=== PATIENT | male | born 1955 | race Caucasian/White ===

== ENCOUNTER 2016-10-23 15:02 | Emergency (ER) | payer OTHER ==
[~2016-10-23] VITALS: Ht 182.8 cm; Wt 72.6 kg
--- NOTE | ~2016-10-23 | EKG ---
[place], [place] ELECTROCARDIOGRAM REPORT NAME: SIMON BAKER UNIT #: [id number] ROOM: DOCTOR: SOLIS LE MD BIRTHDATE: [birth year] DOS: 10/23/2016 TIME: 1614 hours. Normal sinus rhythm at 82 beats per minute. Marked left axis deviation. Incomplete left bundle branch block. An abnormal ECG. No previous tracing is available for comparison. SOLIS LE MD CM:EKGRPT:ELECTROCARDIOGRAM REPORT [id number] 41 SOLIS LE MD
[~2016-10-23 15:02] MED LIST: BENTYL20 MG PO; DONNATAL1 TAB PO; GEODON40 MG PO; MEDROL DOSEPAK4 MG PO; MOTRIN800 MG PO; PEPCID20 MG PO; SIMVASTATIN40 MG PO; SOMA350 MG PO; TRAMADOL HCL50 MG PO; TRAMADOL50 MG PO; ULTRAM50 MG PO; VICODIN 5/500 505 MG; VICODIN 5/500 505 MG PO; VITAMIN D5000 I2 PO; ZOFRAN ODT8 MG PO
[2016-10-23 15:21] VITALS: BP 152/86
[2016-10-23 16:18] LABS: BASO % 0.2 % (0.0-1.0); HEMATOCRIT 43.4 % (42.0-52.0); HEMOGLOBIN 14.1 g/dl (14.0-18.0); LYMPH # 0.8 10*3/uL (1.3-4.4); LYMPH % 11.7 % (27.0-41.0); MEAN CELL VOLUME 96.4 fl (80.0-94.0); MEAN CORPUSCULAR HGB 31.3 pg (27.0-31.0); MEAN CORPUSCULAR HGB CONC 32.5 g/dl (33.0-37.0); MEAN PLATELET VOLUME 10.5 fl (9.6-12.3); MONO # 0.3 10*3/uL (0.1-1.0); MONO % 4.7 % (3.0-9.0); NEUT # 5.5 10*3/uL (2.3-7.9); NEUT % 82.9 % (47.0-73.0); PLATELET COUNT AUTOMATED 267 10*3/uL (130-400); RED CELL DISTRI WIDTH 12.7 % (0-14.5); WHITE BLOOD COUNT 6.6 10*3/uL (4.8-10.8)
[2016-10-23 16:35] LABS: ALBUMIN 3.9 gm/dl (3.1-4.5); ALKALINE PHOSPHATASE 89 U/L (45-117); BILIRUBIN, TOTAL 0.4 mg/dl (0.2-1.0); BUN 8 mg/dl (7-24); CARBON DIOXIDE 25 mmol/L (21-32); CHLORIDE 109 mmol/L (98-107); CKMB 0.9 ng/ml (0.5-3.6); EST GLOM FILT AFRICAN AMERICAN > 60 ml/min; GLUCOSE 98 mg/dL (65-99); MAGNESIUM 2.4 mg/dL (1.5-2.1); POTASSIUM 4.3 mmol/L (3.5-5.1); SGOT/AST 19 IU/L (3-35); SGPT/ALT 27 U/L (12-78); SODIUM 143 mmol/L (136-145); TOTAL PROTEIN 8.2 gm/dL (6.4-8.2)
[2016-10-23 17:20] LABS: PROTHROMBIN TIME 10.4 SECONDS (9.0-12.4)
[2016-10-23 18:22] LABS: BILIRUBIN NEGATIVE (NEGATIVE); BLOOD NEGATIVE (NEGATIVE); CLARITY SL CLOUDY (CLEAR); COLOR YELLOW (YELLOW); GLUCOSE NEGATIVE (NEGATIVE); KETONE NEGATIVE (NEGATIVE); LEUKO ESTERASE NEGATIVE (NEGATIVE); NITRITE NEGATIVE (NEGATIVE); PH 6.5 (5.0-9.0); PROTEIN 1+ (NEGATIVE); UROBILINOGEN 0.2 E.U./dl (0.2-1.0)
[2016-10-23 18:52] LABS: BACTERIA 1+; EPITHELIAL CELLS 0-2; MUCOUS 1+; RBC 0-2 rbc/hpf (0-2); URINE REFLEX COMMENT NO (NO)
== END 2016-10-23 18:20 | disposition left against medical advice (07) ==
LOC: ED 15:02
PROVIDERS: Nurse Practitioner Family
DX: K56.7 Ileus, unspecified (principal); Z90.49 Acquired absence of other specified parts of digestive tract; Z90.3 Acquired absence of stomach [part of]; Z79.899 Other long term (current) drug therapy

== ENCOUNTER 2017-07-02 20:32 | Emergency (ER) | payer OTHER ==
[~2017-07-02] VITALS: Ht 182.8 cm; Wt 77.1 kg
[2017-07-02] MEDS ORDERED: VENTOLIN,PR2 MG/5 ML PO (20:43)
[2017-07-02] MEDS ORDERED: ZOFRAN4 MG PO (20:43)
[2017-07-02 21:26] LABS: BASO % 0.1 % (0.0-1.0); HEMOGLOBIN 13.4 g/dl (14.0-18.0); LYMPH % 9.3 % (27.0-41.0); MEAN CELL VOLUME 93.4 fl (80.0-94.0); MEAN CORPUSCULAR HGB 30.5 pg (27.0-31.0); MEAN CORPUSCULAR HGB CONC 32.7 g/dl (33.0-37.0); MEAN PLATELET VOLUME 10.4 fl (9.6-12.3); MONO # 0.6 10*3/uL (0.1-1.0); MONO % 5.6 % (3.0-9.0); NEUT # 8.9 10*3/uL (2.3-7.9); NEUT % 84.5 % (47.0-73.0); PLATELET COUNT AUTOMATED 239 10*3/uL (130-400); RED BLOOD COUNT 4.39 10*6/uL (4.50-5.90); RED CELL DISTRI WIDTH 12.7 % (0-14.5); WHITE BLOOD COUNT 10.5 10*3/uL (4.8-10.8)
[2017-07-02 21:41] LABS: ALBUMIN 4.1 gm/dl (3.1-4.5); ALKALINE PHOSPHATASE 95 U/L (45-117); BUN 21 mg/dl (7-24); CHLORIDE 103 mmol/L (98-107); CREATININE 1.39 mg/dL (0.70-1.30); LIPASE 223 U/L (73-393); POTASSIUM 4.8 mmol/L (3.5-5.1); SGOT/AST 23 IU/L (3-35); SGPT/ALT 23 U/L (12-78); SODIUM 140 mmol/L (136-145); TOTAL PROTEIN 8.5 gm/dL (6.4-8.2)
[2017-07-02 22:45] VITALS: BP 122/78
[2017-07-02 22:55] LABS: BILIRUBIN NEGATIVE (NEGATIVE); BLOOD 1+ (NEGATIVE); CLARITY SL CLOUDY (CLEAR); COLOR YELLOW (YELLOW); GLUCOSE NEGATIVE (NEGATIVE); KETONE TRACE (NEGATIVE); LEUKO ESTERASE 2+ (NEGATIVE); NITRITE POSITIVE (NEGATIVE); PH 5.5 (5.0-9.0); SPECIFIC GRAVITY >= 1.030 (1.005-1.030); UROBILINOGEN 0.2 E.U./dl (0.2-1.0)
[2017-07-02 23:08] LABS: BACTERIA TRACE; RBC 31-40 rbc/hpf (0-2); WBC 21-30 wbc/hpf (0-5)
[2017-07-02] MEDS ORDERED: MIRALAX POWDER17 G1 PO (23:24)
[2017-07-02] MEDS ORDERED: MACROBID100 M1 PO (23:24)
[2017-07-02 23:49] LABS: URINE AMPHETAMINES < 1000 (1000ng/ml); URINE BARBITURATES < 200 (200ng/ml); URINE BENZODIAZEPINES > 200 (200ng/ml); URINE CANNABINOIDS (THC) > 50 (50ng/ml); URINE COCAINE < 300 (300ng/ml); URINE METHADONE < 300 (300ng/ml); URINE OPIATES > 300 (300ng/ml)
[2017-07-02 23:50] LABS: URINE PHENCYCLIDINE < 25 (25ng/ml)
== END 2017-07-03 00:29 | disposition home or self-care (01) ==
LOC: ED 20:32
PROVIDERS: Nurse Practitioner Family
DX: K59.00 Constipation, unspecified (principal); N39.0 Urinary tract infection, site not specified; R31.9 Hematuria, unspecified; Z90.49 Acquired absence of other specified parts of digestive tract; Z79.899 Other long term (current) drug therapy

== ENCOUNTER 2017-07-03 19:27 | Inpatient (IN) | payer OTHER ==
[~2017-07-03] VITALS: Ht 182.9 cm; Wt 78.6 kg
--- NOTE | ~2017-07-03 | CON ---
[place], [place] REPORT OF CONSULTATION NAME[facility]AKER [id number] UNIT #: [id number] ROOM: 408 DOCTOR: HARLEEN OSBORN MD BIRTHDATE: [birth year] DOS: 07/04/2017 GASTROENDOSCOPIC REPORT. HISTORY OF PRESENT ILLNESS: A 61-year-old patient who has presented to Emergency Room with chief complaint of abdominal pain, intractable epigastric pain, nauseated, now somnolent. He had a panel of a screening workup done. His CBC initially shows white blood cell of 10, H and H of 13 and 41. Comprehensive metabolic panel, BUN and creatinine 21 and 1.3. Electrolytes balance, liver function tests normal. Lipase 230, normal. Urinalysis, nitrite positive. KUB of the abdomen did not yield obstruction; however, prominent loops of the bowel are seen. Large amount of stool throughout the rectum and colon was identified. Urine screening, THC positive, benzodiazepines positive, opiates positive and he received Dilaudid dose on the floor. His white blood cell then jm to 11. Comprehensive metabolic panel remained stable. CT scan of the abdomen and pelvis was done. No definitive pathology except a 4 mm nodular in the right lower lobe noticed. Lactic acid 1.6. Serum ammonia normal. PAST MEDICAL HISTORY: Associated abdominal acute epigastric pain, pulmonary nodule, suspected sepsis, COPD, history of peptic ulcer disease, constipation. SOCIAL HISTORY: Nonsmoker at the present time; however, he utilizes cannabis. Nonalcohol drinker. PAST SURGICAL HISTORY: Cholecystectomy, partial gastrectomy. FAMILY HISTORY: Noncontributory. ALLERGIES: MUSHROOM. MEDICATIONS: List has been reviewed on vitamin D, albuterol, dicyclomine, simvastatin, tramadol, ondansetron, all has been noticed. REVIEW OF SYSTEMS: Cannot be in detail obtained from him, somnolent. However, he responds yes to everything. PHYSICAL EXAMINATION: GENERAL: Relative frail, non-groomed. HEENT: Otherwise, benign tongue, free of aphthae ulcer or thrush. NECK: Supple. LUNGS: Decreased air entry bilaterally. No wheeze, no rhonchi. HEART: Normal sinus rhythm, no gallop, no murmur. ABDOMEN: Epigastric tenderness. Bowel sounds present. Scar of surgery noticed. EXTREMITIES: No cyanosis, no pedal edema. NEUROLOGIC: Somnolent, however, responding to verbal commands. IMPRESSION: Status post gastric bypass surgery, details unknown, operative report not available, ruling out anastomotic site ulcer and perforation. History of peptic ulcer disease; hypercholesterolemia; COPD; history of [place], [place] REPORT OF CONSULTATION NAME: SIMON BAKER UNIT #: [id number] ROOM: 408 DOCTOR: HARLEEN OSBORN MD BIRTHDATE: [birth year] ex-smoker; history of irritable bowel syndrome, on dicyclomine by history. PLAN AND DISCUSSION: We are going to proceed with endoscopy of upper tract to ensure no acute pathology. HARLEEN OSBORN MD CM:CONSTR:REPORT OF CONSULTATION 1052 07/04/17 1450 interface
--- NOTE | ~2017-07-03 | CON ---
[place], [place] REPORT OF CONSULTATION NAME: SIMON BAKER UNIT #: [id number] ROOM: 408 DOCTOR: BRAIN SINGH MD BIRTHDATE: [birth year] DOS: 07/04/2017 CHIEF COMPLAINT: "Morning." HISTORY OF PRESENT ILLNESS: This is a 61-year-old white male who was admitted to the medical floor at [facility] due to persistent complaints of abdominal pain. The patient had reported to the primary care physician that he has been having severe abdominal pain since . He was tearful at that time and did state that he needed to take a shower because showers take the pain away. The pain was described as epigastric and nonradiating. He was seen earlier on the day of admission with similar complaints and was diagnosed with UTI and constipation. Now the pain has been reportedly worsening and he also states that he has been vomiting. Primary care physician was concerned because his mental status was such that he appeared to be very delusional and psychotic and on the verge of agitation requiring p.r.n. intervention of Geodon intramuscularly with good results. Of note, the patient's H and H is dropping dramatically and a suspected GI bleed is a concern. PAST MEDICAL HISTORY: Positive for history of sepsis, pulmonary nodule, normocytic anemia, leukocytosis, elevated troponin, acute epigastric pain. MENTAL STATUS: My mental status is limited due to the fact that the patient is somewhat somnolent. He did awaken and open his eyes and did state "Good morning." At that point in time, he did doze back off and I was unable to engage him in any meaningful conversation. DIAGNOSIS: Brief psychotic disorder. PLAN: We will go ahead and add a serum ammonia to check to make certain that this is not elevated. At this point, I am going to hold off on utilizing any type of antipsychotic until we see if this is organically based and will clear as he is more medically stabilized. Reconsult me in the future should symptoms persist or worsen. BRAIN SINGH MD CM:CONSTR:REPORT OF CONSULTATION 0857 07/04/17 1023 interface
--- NOTE | ~2017-07-03 | O ---
[place], [place] OPERATIVE NOTE NAME: SIMON BAKER UNIT #: [id number] ROOM: 408 DOCTOR: HARLEEN OSBORN MD BIRTHDATE: [birth year] DOS: 07/04/2017 INDICATIONS: The patient has presented with abdominal pain, undergoing investigation. Consultation has been dictated. The patient has had a gastric resection, we have not been able to find operative report. We were concerned about gastric bypass and anastomotic site ulcer in view of abdominal pain and normality of all other tests. PROCEDURE: Today's procedure part of investigation is panendoscopy plus biopsy. PREMEDICATION: Versed and Diprivan. SCOPE: Olympus forward-viewing gastroscope Q10 video. REPORT: After putting the patient in the left lateral position and after application of lubricant to the scope, the scope was introduced. Thereafter, under direct visualization, I advanced through the length of the esophagus without difficulty. Hiatal hernia was noticed, which was about 2 cm. Gastric pouch was entered. Antrum is absent, status post antrectomy. Gastritis in the proximal segment of the stomach when bile reflux was noticed. was biopsied. Photographic series obtained. The patient extubated, tolerated procedure well. IMPRESSION: Status post partial gastrectomy and status post bile reflux gastritis. PLAN AND DISCUSSION: Support Protonix 40 mg daily. We have reviewed the pain management on this patient. Apparently, he has been on a variety of pain medications including morphine sulfate, [place], and he has received Dilaudid and he became quite lethargic; therefore, I am going to request to withdraw Dilaudid from his list of management and combination of [place], morphine sulfate and Demerol has to be carefully observed and reassured and second opinion before the patient receives toxic dose because at the present time, very difficult to arouse the patient preoperatively for us. Thank you very much indeed. [place], [place] OPERATIVE NOTE NAME: SIMON BAKER UNIT #: [id number] ROOM: 408 DOCTOR: HARLEEN OSBORN MD BIRTHDATE: [birth year] HARLEEN OSBORN MD CM:OPRECORD:OPERATIVE NOTE 1142 [id number] HARLEEN OSBORN MD 07/04/17 1307 interface
[~2017-07-03 19:27] MED LIST changes: +MACROBID100 M1 PO; +MIRALAX POWDER17 G1 PO; +VENTOLIN,PR2 MG/5 ML PO; +ZOFRAN4 MG PO
[2017-07-03 19:59] VITALS: BP 165/96
[2017-07-03 20:19] LABS: BASO % 0.1 % (0.0-1.0); HEMATOCRIT 40.2 % (42.0-52.0); HEMOGLOBIN 13.3 g/dl (14.0-18.0); LYMPH # 1.3 10*3/uL (1.3-4.4); MEAN CELL VOLUME 92.6 fl (80.0-94.0); MEAN CORPUSCULAR HGB 30.6 pg (27.0-31.0); MEAN CORPUSCULAR HGB CONC 33.1 g/dl (33.0-37.0); MEAN PLATELET VOLUME 10.6 fl (9.6-12.3); MONO # 0.7 10*3/uL (0.1-1.0); MONO % 5.9 % (3.0-9.0); NEUT # 8.9 10*3/uL (2.3-7.9); NEUT % 81.5 % (47.0-73.0); PLATELET COUNT AUTOMATED 245 10*3/uL (130-400); RED BLOOD COUNT 4.34 10*6/uL (4.50-5.90); RED CELL DISTRI WIDTH 12.7 % (0-14.5)
[2017-07-03 20:38] LABS: ALBUMIN 4.1 gm/dl (3.1-4.5); ALKALINE PHOSPHATASE 88 U/L (45-117); BUN 15 mg/dl (7-24); CHLORIDE 105 mmol/L (98-107); CREATININE 1.04 mg/dL (0.70-1.30); LIPASE 185 U/L (73-393); SGOT/AST 24 IU/L (3-35); SGPT/ALT 21 U/L (12-78); TOTAL PROTEIN 8.1 gm/dL (6.4-8.2)
[2017-07-03 20:41] LABS: SODIUM 139 mmol/L (136-145)
[2017-07-03 20:42] LABS: POTASSIUM 3.5 mmol/L (3.5-5.1)
[2017-07-04] VITALS (10 sets, daily range): BP systolic 116–182; BP diastolic 68–97
[2017-07-04 02:26] LABS: BASO % 0.1 % (0.0-1.0); HEMATOCRIT 38.8 % (42.0-52.0); HEMOGLOBIN 12.9 g/dl (14.0-18.0); LYMPH # 1.4 10*3/uL (1.3-4.4); LYMPH % 9.7 % (27.0-41.0); MEAN CELL VOLUME 92.2 fl (80.0-94.0); MEAN CORPUSCULAR HGB 30.6 pg (27.0-31.0); MEAN CORPUSCULAR HGB CONC 33.2 g/dl (33.0-37.0); MEAN PLATELET VOLUME 10.5 fl (9.6-12.3); MONO % 6.7 % (3.0-9.0); PLATELET COUNT AUTOMATED 236 10*3/uL (130-400); RED BLOOD COUNT 4.21 10*6/uL (4.50-5.90); RED CELL DISTRI WIDTH 12.7 % (0-14.5); WHITE BLOOD COUNT 14.5 10*3/uL (4.8-10.8)
[2017-07-04 02:42] LABS: ALBUMIN 3.9 gm/dl (3.1-4.5); ALKALINE PHOSPHATASE 91 U/L (45-117); BUN 13 mg/dl (7-24); CHLORIDE 101 mmol/L (98-107); CHOLESTEROL 169 mg/dL (<200); CREATININE 0.99 mg/dL (0.70-1.30); HDL CHOLESTEROL 59 mg/dl (40-60); LDL CHOLESTEROL 84 mg/dL (9-159); PHOSPHOROUS 2.8 mg/dL (2.5-4.9); POTASSIUM 3.6 mmol/L (3.5-5.1); SGOT/AST 25 IU/L (3-35); SGPT/ALT 23 U/L (12-78); SODIUM 137 mmol/L (136-145); TRIGLYCERIDES 131 mg/dl (<150); VLDL CHOLESTEROL 26 mg/dL (6-40)
[2017-07-04 03:02] LABS: VITAMIN D, 25-HYDROXY 102.1 ng/mL (30-100)
[2017-07-04 06:04] LABS: BASO % 0.1 % (0.0-1.0); HEMATOCRIT 34.4 % (42.0-52.0); HEMOGLOBIN 11.3 g/dl (14.0-18.0); LYMPH # 1.4 10*3/uL (1.3-4.4); LYMPH % 14.8 % (27.0-41.0); MEAN CELL VOLUME 93.7 fl (80.0-94.0); MEAN CORPUSCULAR HGB 30.8 pg (27.0-31.0); MEAN CORPUSCULAR HGB CONC 32.8 g/dl (33.0-37.0); MEAN PLATELET VOLUME 10.9 fl (9.6-12.3); MONO # 0.8 10*3/uL (0.1-1.0); MONO % 8.4 % (3.0-9.0); NEUT % 76.3 % (47.0-73.0); PLATELET COUNT AUTOMATED 195 10*3/uL (130-400); RED BLOOD COUNT 3.67 10*6/uL (4.50-5.90); RED CELL DISTRI WIDTH 12.6 % (0-14.5); WHITE BLOOD COUNT 9.1 10*3/uL (4.8-10.8)
[2017-07-04 06:20] LABS: BUN 13 mg/dl (7-24); CHLORIDE 106 mmol/L (98-107); CREATININE 0.92 mg/dL (0.70-1.30); SODIUM 139 mmol/L (136-145)
[2017-07-04 06:23] LABS: TROPONIN I 0.121 ng/ml (<0.045)
[2017-07-04 08:22] LABS: HEMATOCRIT 38.3 % (42.0-52.0); HEMOGLOBIN 12.7 g/dl (14.0-18.0)
[2017-07-04 08:52] LABS: BILIRUBIN NEGATIVE (NEGATIVE); BLOOD 1+ (NEGATIVE); CLARITY SL CLOUDY (CLEAR); COLOR YELLOW (YELLOW); GLUCOSE NEGATIVE (NEGATIVE); KETONE 1+ (NEGATIVE); LEUKO ESTERASE 2+ (NEGATIVE); NITRITE NEGATIVE (NEGATIVE); PH 6.5 (5.0-9.0); SPECIFIC GRAVITY 1.015 (1.005-1.030); UROBILINOGEN 0.2 E.U./dl (0.2-1.0)
[2017-07-04 09:00] LABS: BACTERIA 2+; RBC 21-30 rbc/hpf (0-2); WBC 31-40 wbc/hpf (0-5)
[2017-07-05] VITALS: BP 168/64
[2017-07-05 06:48] LABS: BASO % 0.1 % (0.0-1.0); EOS % 0.1 % (1.0-4.0); HEMATOCRIT 36.7 % (42.0-52.0); HEMOGLOBIN 12.2 g/dl (14.0-18.0); LYMPH # 1.7 10*3/uL (1.3-4.4); LYMPH % 23.2 % (27.0-41.0); MEAN CELL VOLUME 92.2 fl (80.0-94.0); MEAN CORPUSCULAR HGB 30.7 pg (27.0-31.0); MEAN CORPUSCULAR HGB CONC 33.2 g/dl (33.0-37.0); MEAN PLATELET VOLUME 10.9 fl (9.6-12.3); MONO # 0.7 10*3/uL (0.1-1.0); MONO % 9.2 % (3.0-9.0); PLATELET COUNT AUTOMATED 207 10*3/uL (130-400); RED BLOOD COUNT 3.98 10*6/uL (4.50-5.90); RED CELL DISTRI WIDTH 12.6 % (0-14.5); WHITE BLOOD COUNT 7.5 10*3/uL (4.8-10.8)
[2017-07-05 07:02] LABS: BUN 10 mg/dl (7-24); CHLORIDE 104 mmol/L (98-107); CREATININE 0.94 mg/dL (0.70-1.30); POTASSIUM 3.1 mmol/L (3.5-5.1); SODIUM 137 mmol/L (136-145)
[2017-07-05 07:03] LABS: TROPONIN I 0.057 ng/ml (<0.045)
[2017-07-05 08:00] VITALS: BP 135/88
[2017-07-05 12:00] VITALS: BP 172/84
[2017-07-05 16:00] VITALS: BP 162/92
[2017-07-05 20:00] VITALS: BP 155/87
[2017-07-06] VITALS: BP 156/82
[2017-07-06 08:00] VITALS: BP 160/78
[2017-07-06 12:00] VITALS: BP 136/86
[2017-07-06 12:58] VITALS: BP 106/64
[2017-07-06] MEDS ORDERED: PROTONIX40 MG PO (15:55)
[2017-07-06 16:00] VITALS: BP 143/84
== END 2017-07-06 16:58 | disposition home or self-care (01) | DRG 872 ==
LOC: ED 19:27 → EDHOLD 07-04 01:20 → 4E 07-04 01:20
PROVIDERS: Family Medicine; Hospitalist; Internal Medicine; Nurse Practitioner Family; ADMIT Internal Medicine
PROC: 0DB68ZX Excision of Stomach, Via Natural or Artificial Opening Endoscopic, Diagnostic (ICD-10-PCS; principal; 2017-07-04)
DX: A41.9 Sepsis, unspecified organism (principal); I50.32 Chronic diastolic (congestive) heart failure; I77.4 Celiac artery compression syndrome; N39.0 Urinary tract infection, site not specified; F23 Brief psychotic disorder; R31.9 Hematuria, unspecified; D64.9 Anemia, unspecified; R91.1 Solitary pulmonary nodule; F12.20 Cannabis dependence, uncomplicated; K27.9 Peptic ulcer, site unspecified, unspecified as acute or chronic, without hemorrhage or perforation; J43.9 Emphysema, unspecified; D72.810 Lymphocytopenia; E87.6 Hypokalemia; E67.3 Hypervitaminosis D; R73.9 Hyperglycemia, unspecified; K21.9 Gastro-esophageal reflux disease without esophagitis; I44.4 Left anterior fascicular block; E78.00 Pure hypercholesterolemia, unspecified; I35.1 Nonrheumatic aortic (valve) insufficiency; K58.9 Irritable bowel syndrome, unspecified; K44.9 Diaphragmatic hernia without obstruction or gangrene; K29.70 Gastritis, unspecified, without bleeding; Z98.84 Bariatric surgery status; Z87.891 Personal history of nicotine dependence; Z90.49 Acquired absence of other specified parts of digestive tract; Z90.3 Acquired absence of stomach [part of]; Z80.0 Family history of malignant neoplasm of digestive organs; Z91.018 Allergy to other foods; Z79.51 Long term (current) use of inhaled steroids; Z79.899 Other long term (current) drug therapy; Z79.1 Long term (current) use of non-steroidal anti-inflammatories (NSAID)

== ENCOUNTER 2018-02-08 23:02 | Inpatient (IN) | payer MEDICARE, MEDICAID ==
[~2018-02-08] VITALS: Ht 182.8 cm; Wt 75.8 kg
--- NOTE | ~2018-02-08 | CON ---
[place], [place] REPORT OF CONSULTATION NAME: SIMON BAKER UNIT #: [id number] ROOM: 407 DOCTOR: BRAIN SINGH MD BIRTHDATE: [birth year] DOS: 02/10/2018 PSYCHIATRIC CONSULTATION CHIEF COMPLAINT: The patient was in the shower for the entire time that I was on the unit and was unable to be evaluated. HISTORY OF PRESENT ILLNESS: This is a 62-year-old white male who was admitted due to possible gastroenteritis and severe sepsis. Since he has been hospitalized, however, nurses have noted that he spends approximately 85% of his day taking showers. Attempts to redirect or stop him are met with him becoming increasingly anxious and irritable. Most, if not all of my information that was gleamed today was from nursing report and from the chart. The patient apparently has had similar behavior and had been prescribed Elavil which seems to be grossly ineffective. Per their description and due to the description of others, the patient does seem to be exhibiting OCD behavior. PROVISIONAL DIAGNOSIS: Obsessive compulsive disorder. PLAN: I will go ahead and check some screening examinations to rule out any organic factors. I will discontinue Elavil in lieu of Luvox 50 mg at bedtime. This should gradually be increased to 50 mg twice a day and 50 mg in the morning and 100 at bedtime to see if we can impact positively on his behavior. This will reduce anxiety as well. Given the fact that I was not able to talk to this gentleman, I do not know if he would willingly come down to the [facility] for further treatment. Certainly, I have no grounds from the sounds of it and reviewing the chart to suggest that we can probate him. If he is willing, I will do believe he would benefit from ongoing treatment. BRAIN SINGH MD CM:CONSTR:REPORT OF CONSULTATION 1118 02/10/18 1132 interface
[~2018-02-08 23:02] MED LIST changes: +PROTONIX40 MG PO
[2018-02-08 23:03] VITALS: BP 165/85
[2018-02-08 23:33] LABS: BASO % 0.1 % (0.0-1.0); EOS % 0.1 % (1.0-4.0); HEMATOCRIT 42.5 % (42.0-52.0); HEMOGLOBIN 13.9 g/dl (14.0-18.0); LYMPH % 5.8 % (27.0-41.0); MEAN CELL VOLUME 93.8 fl (80.0-94.0); MEAN CORPUSCULAR HGB 30.7 pg (27.0-31.0); MEAN CORPUSCULAR HGB CONC 32.7 g/dl (33.0-37.0); MEAN PLATELET VOLUME 10.3 fl (9.6-12.3); MONO # 0.9 10*3/uL (0.1-1.0); MONO % 5.1 % (3.0-9.0); NEUT # 15.5 10*3/uL (2.3-7.9); NEUT % 88.6 % (47.0-73.0); PLATELET COUNT AUTOMATED 300 10*3/uL (130-400); RED BLOOD COUNT 4.53 10*6/uL (4.50-5.90); RED CELL DISTRI WIDTH 12.4 % (0-14.5); WHITE BLOOD COUNT 17.6 10*3/uL (4.8-10.8)
[2018-02-08 23:49] LABS: CREATININE 1.49 mg/dL (0.70-1.30); POTASSIUM 4.3 mmol/L (3.5-5.1); TOTAL PROTEIN 8.1 gm/dL (6.4-8.2)
[2018-02-09] VITALS (8 sets, daily range): BP systolic 100–191; BP diastolic 51–92
[2018-02-09 01:26] LABS: BILIRUBIN NEGATIVE (NEGATIVE); BLOOD NEGATIVE (NEGATIVE); CLARITY CLEAR (CLEAR); COLOR YELLOW (YELLOW); GLUCOSE NEGATIVE (NEGATIVE); KETONE NEGATIVE (NEGATIVE); LEUKO ESTERASE NEGATIVE (NEGATIVE); NITRITE NEGATIVE (NEGATIVE); SPECIFIC GRAVITY 1.025 (1.005-1.030); UROBILINOGEN 0.2 E.U./dl (0.2-1.0)
[2018-02-09 01:34] LABS: WBC 0-2 wbc/hpf (0-5)
[2018-02-09 01:35] LABS: URINE AMPHETAMINES < 1000 (1000ng/ml); URINE BARBITURATES < 200 (200ng/ml); URINE BENZODIAZEPINES > 200 (200ng/ml); URINE CANNABINOIDS (THC) > 50 (50ng/ml); URINE COCAINE < 300 (300ng/ml); URINE METHADONE < 300 (300ng/ml); URINE OPIATES > 300 (300ng/ml)
[2018-02-09 01:36] LABS: URINE PHENCYCLIDINE < 25 (25ng/ml)
[2018-02-09 05:37] LABS: ALBUMIN 3.6 gm/dl (3.1-4.5); ALKALINE PHOSPHATASE 83 U/L (45-117); BUN 13 mg/dl (7-24); CHLORIDE 103 mmol/L (98-107); CHOLESTEROL 173 mg/dL (<200); CREATININE 1.26 mg/dL (0.70-1.30); HDL CHOLESTEROL 49 mg/dl (40-60); LDL CHOLESTEROL 94 mg/dL (9-159); PHOSPHOROUS 2.8 mg/dL (2.5-4.9); POTASSIUM 3.9 mmol/L (3.5-5.1); SGOT/AST 29 IU/L (3-35); SGPT/ALT 34 U/L (12-78); SODIUM 138 mmol/L (136-145); TOTAL PROTEIN 7.3 gm/dL (6.4-8.2); TRIGLYCERIDES 151 mg/dl (<150); VLDL CHOLESTEROL 30 mg/dL (6-40)
[2018-02-09 05:41] LABS: THYROID STIM HORMONE (HS) 0.812 uIU/ml (0.358-4.75)
[2018-02-09 05:58] LABS: BASO % 0.1 % (0.0-1.0); EOS % 0.1 % (1.0-4.0); HEMATOCRIT 37.8 % (42.0-52.0); HEMOGLOBIN 12.3 g/dl (14.0-18.0); LYMPH # 0.7 10*3/uL (1.3-4.4); MEAN CORPUSCULAR HGB 30.6 pg (27.0-31.0); MEAN CORPUSCULAR HGB CONC 32.5 g/dl (33.0-37.0); MEAN PLATELET VOLUME 10.7 fl (9.6-12.3); MONO # 0.5 10*3/uL (0.1-1.0); MONO % 3.9 % (3.0-9.0); NEUT # 10.8 10*3/uL (2.3-7.9); NEUT % 89.5 % (47.0-73.0); PLATELET COUNT AUTOMATED 259 10*3/uL (130-400); RED BLOOD COUNT 4.02 10*6/uL (4.50-5.90); RED CELL DISTRI WIDTH 12.4 % (0-14.5); WHITE BLOOD COUNT 12.1 10*3/uL (4.8-10.8)
[2018-02-09 06:16] LABS: ACT PARTIAL THROMBO TIME 19.9 SECONDS (20.8-31.5)
[2018-02-10] VITALS: BP 155/86
[2018-02-10 08:00] VITALS: BP 172/88
[2018-02-10 09:33] LABS: BASO % 0.2 % (0.0-1.0); EOS % 0.1 % (1.0-4.0); HEMATOCRIT 39.3 % (42.0-52.0); HEMOGLOBIN 12.8 g/dl (14.0-18.0); LYMPH # 1.4 10*3/uL (1.3-4.4); LYMPH % 11.5 % (27.0-41.0); MEAN CELL VOLUME 93.1 fl (80.0-94.0); MEAN CORPUSCULAR HGB 30.3 pg (27.0-31.0); MEAN CORPUSCULAR HGB CONC 32.6 g/dl (33.0-37.0); MEAN PLATELET VOLUME 10.4 fl (9.6-12.3); MONO # 0.8 10*3/uL (0.1-1.0); MONO % 6.5 % (3.0-9.0); NEUT # 9.6 10*3/uL (2.3-7.9); NEUT % 81.2 % (47.0-73.0); PLATELET COUNT AUTOMATED 282 10*3/uL (130-400); RED BLOOD COUNT 4.22 10*6/uL (4.50-5.90); RED CELL DISTRI WIDTH 12.9 % (0-14.5); WHITE BLOOD COUNT 11.9 10*3/uL (4.8-10.8)
[2018-02-10 12:00] VITALS: BP 160/86
[2018-02-10 16:00] VITALS: BP 140/81
[2018-02-10 20:00] VITALS: BP 185/97
[2018-02-10 20:30] VITALS: BP 158/80
[2018-02-11] VITALS (9 sets, daily range): BP systolic 122–190; BP diastolic 75–103
[2018-02-12] VITALS: BP 137/79
[2018-02-12 07:23] LABS: CREATININE 1.21 mg/dL (0.70-1.30)
[2018-02-12 08:00] VITALS: BP 170/96
[2018-02-12] MEDS ORDERED: FLUVOXAMINE50 MG PO (11:17)
[2018-02-12] MEDS ORDERED: Carafate1 GM PO (11:17)
== END 2018-02-12 11:40 | disposition home or self-care (01) | DRG 871 ==
LOC: ED 23:02 → EDHOLD 02-09 01:23 → 4E 02-09 01:23 → 5E 02-09 02:47 → 4E 02-09 22:29
PROVIDERS: Family Medicine; Internal Medicine; Internal Medicine Nephrology; Physician Assistant
PROC: 0DB68ZX Excision of Stomach, Via Natural or Artificial Opening Endoscopic, Diagnostic (ICD-10-PCS; principal; 2018-02-11)
DX: A41.9 Sepsis, unspecified organism (principal); N17.0 Acute kidney failure with tubular necrosis; I16.1 Hypertensive emergency; I50.32 Chronic diastolic (congestive) heart failure; K52.9 Noninfective gastroenteritis and colitis, unspecified; J44.9 Chronic obstructive pulmonary disease, unspecified; K27.9 Peptic ulcer, site unspecified, unspecified as acute or chronic, without hemorrhage or perforation; F11.10 Opioid abuse, uncomplicated; F12.10 Cannabis abuse, uncomplicated; R65.20 Severe sepsis without septic shock; I35.1 Nonrheumatic aortic (valve) insufficiency; K29.70 Gastritis, unspecified, without bleeding; R91.1 Solitary pulmonary nodule; K44.9 Diaphragmatic hernia without obstruction or gangrene; K20.9 Esophagitis, unspecified; D64.9 Anemia, unspecified; F42.9 Obsessive-compulsive disorder, unspecified; D72.810 Lymphocytopenia; R73.9 Hyperglycemia, unspecified; F13.10 Sedative, hypnotic or anxiolytic abuse, uncomplicated; E78.00 Pure hypercholesterolemia, unspecified; Z90.49 Acquired absence of other specified parts of digestive tract; Z87.891 Personal history of nicotine dependence; Z80.0 Family history of malignant neoplasm of digestive organs; Z88.6 Allergy status to analgesic agent; Z91.018 Allergy to other foods; Z79.899 Other long term (current) drug therapy; Z82.49 Family history of ischemic heart disease and other diseases of the circulatory system

== ENCOUNTER 2018-06-22 09:23 | Emergency (ER) | payer MEDICARE, MEDICAID ==
[~2018-06-22] VITALS: Ht 182.8 cm; Wt 70.3 kg
--- NOTE | ~2018-06-22 | EKG ---
[place], [place] ELECTROCARDIOGRAM REPORT NAME: SIMON BAKER UNIT #: [id number] ROOM: DOCTOR: EPIPHANY DRAFT REPORT BIRTHDATE: [birth year] [facility] Test Date: 2018-06-22 Test Time: 09:59:28 Pat Name: SIMON BAKER Department: Room: Gender: Resin Coater: Geena Saldana : 1955 Requested By: LESLY NORWOOD Order Number: [id number] Reading MD: Bernard Mallory MD Measurements Intervals Ray Rate: 86 P: 76 WA: 155 QRS: -38 QRSD: 123 T: 74 QT: 405 QTc: 485 Interpretive Statements Sinus rhythm Left bundle branch block Baseline wander in lead(s) V2,V3 Electronically Signed On 06-22-2018 11:46:46 PDT by Bernard Mallory MD CM:EKGRPT:ELECTROCARDIOGRAM REPORT [id number] LESLY NORWOOD EPIPHANY DRAFT REPORT LESLY NORWOOD
[~2018-06-22 09:23] MED LIST changes: +BENTYL PO; -BENTYL20 MG PO; +Carafate1 GM PO; +FLUVOXAMINE50 MG PO
[2018-06-22 09:43] LABS: BASO % 0.1 % (0.0-1.0); EOS % 0.2 % (1.0-4.0); HEMATOCRIT 42.2 % (42.0-52.0); LYMPH # 1.1 10*3/uL (1.3-4.4); LYMPH % 10.4 % (27.0-41.0); MEAN CELL VOLUME 92.5 fl (80.0-94.0); MEAN CORPUSCULAR HGB 30.7 pg (27.0-31.0); MEAN CORPUSCULAR HGB CONC 33.2 g/dl (33.0-37.0); MEAN PLATELET VOLUME 10.6 fl (9.6-12.3); MONO # 0.6 10*3/uL (0.1-1.0); MONO % 5.4 % (3.0-9.0); NEUT # 8.8 10*3/uL (2.3-7.9); NEUT % 83.3 % (47.0-73.0); PLATELET COUNT AUTOMATED 282 10*3/uL (130-400); RED BLOOD COUNT 4.56 10*6/uL (4.50-5.90); RED CELL DISTRI WIDTH 13.1 % (0-14.5); WHITE BLOOD COUNT 10.5 10*3/uL (4.8-10.8)
[2018-06-22 09:59] LABS: ALBUMIN 4.5 gm/dl (3.1-4.5); ALKALINE PHOSPHATASE 90 U/L (45-117); BUN 20 mg/dl (7-24); CHLORIDE 100 mmol/L (98-107); CREATININE 1.32 mg/dL (0.70-1.30); POTASSIUM 3.6 mmol/L (3.5-5.1); SGOT/AST 16 IU/L (3-35); SGPT/ALT 19 U/L (12-78); SODIUM 134 mmol/L (136-145); TOTAL PROTEIN 8.7 gm/dL (6.4-8.2)
[2018-06-22 12:30] VITALS: BP 184/90
[2018-06-22 12:31] LABS: BILIRUBIN NEGATIVE (NEGATIVE); BLOOD TRACE-INTACT (NEGATIVE); CLARITY CLOUDY (CLEAR); COLOR YELLOW (YELLOW); GLUCOSE NEGATIVE (NEGATIVE); KETONE TRACE (NEGATIVE); LEUKO ESTERASE TRACE (NEGATIVE); NITRITE POSITIVE (NEGATIVE); UROBILINOGEN 0.2 E.U./dl (0.2-1.0)
[2018-06-22 12:38] LABS: URINE AMPHETAMINES < 1000 (1000ng/ml); URINE BARBITURATES < 200 (200ng/ml); URINE BENZODIAZEPINES < 200 (200ng/ml); URINE CANNABINOIDS (THC) > 50 (50ng/ml); URINE COCAINE < 300 (300ng/ml); URINE METHADONE < 300 (300ng/ml); URINE OPIATES < 300 (300ng/ml)
[2018-06-22 12:43] LABS: URINE PHENCYCLIDINE < 25 (25ng/ml)
[2018-06-22 12:49] LABS: BACTERIA 4+; MUCOUS 1+; WBC 21-30 wbc/hpf (0-5)
[2018-06-22] MEDS ORDERED: FLAGYL500 MG PO (12:53)
[2018-06-22] MEDS ORDERED: ZOFRAN4 MG PO (12:53)
[2018-06-22] MEDS ORDERED: CIPRO500 MG PO (12:53)
[2018-06-22] MEDS ORDERED: CARAFATE1 G1 PO (12:53)
[2018-09-09] MEDS ORDERED: VITAMIN D50000 UNIT PO (13:06)
[2018-09-09] MEDS ORDERED: METOCLOPRAMIDE5 MG PO (13:08)
[2018-09-10] MEDS ORDERED: CARAFATE1 G1 PO (13:36)
== END 2018-06-22 13:05 | disposition home or self-care (01) ==
LOC: ED 09:23
PROVIDERS: Nurse Practitioner Family
DX: K52.89 Other specified noninfective gastroenteritis and colitis (principal); N39.0 Urinary tract infection, site not specified; R03.0 Elevated blood-pressure reading, without diagnosis of hypertension; Z87.891 Personal history of nicotine dependence; Z90.49 Acquired absence of other specified parts of digestive tract; Z90.3 Acquired absence of stomach [part of]; Z79.899 Other long term (current) drug therapy; Z91.018 Allergy to other foods

== ENCOUNTER → 2018-09-10 | Day surgery (SDC) | payer MEDICARE, MEDICAID ==
[~2018-09-10] VITALS: Ht 182.8 cm; Wt 69.9 kg
[~2018-09-10] MED LIST changes: +CARAFATE1 G1 PO; +CIPRO500 MG PO; +FLAGYL500 MG PO; +METOCLOPRAMIDE5 MG PO; +VITAMIN D50000 UNIT PO
[2018-09-10 10:58] VITALS: BP 138/80
[2018-09-10 12:57] VITALS: BP 123/68
[2018-09-10 13:12] VITALS: BP 144/75
[2018-09-10 13:30] VITALS: BP 144/75
== END | disposition home or self-care (01) ==
LOC: SDC 09-06 10:15
DX: Z12.11 Encounter for screening for malignant neoplasm of colon (principal); K63.5 Polyp of colon; K57.30 Diverticulosis of large intestine without perforation or abscess without bleeding; K64.8 Other hemorrhoids; K31.89 Other diseases of stomach and duodenum; K44.9 Diaphragmatic hernia without obstruction or gangrene; J43.9 Emphysema, unspecified; F17.210 Nicotine dependence, cigarettes, uncomplicated; Z79.899 Other long term (current) drug therapy; Z90.49 Acquired absence of other specified parts of digestive tract; Z90.3 Acquired absence of stomach [part of]; Z91.018 Allergy to other foods; Z80.0 Family history of malignant neoplasm of digestive organs; Z98.890 Other specified postprocedural states